=== PATIENT | male | born 1945 | race Caucasian/White ===

== ENCOUNTER 2017-04-08 09:09 | Emergency (ER) | payer MEDICARE ==
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
[2017-04-08] MEDS ORDERED: Diph,Pert(Acell),Tet Vac 0.5 ML SYR IM ONE (09:54)
[2017-04-08] MEDS ORDERED: SILVER SULFADIAZINE 25 GM CREAM TOP ONE (10:02)
[2017-04-08 10:35] LABS: BASO % 0.2 % (0-6); EOS % 3.4 % (0-6); GRAN % 74.4 % (47-80); HEMATOCRIT 42.6 % (42.0-52.0); HEMOGLOBIN 14.4 gm/dl (14.0-18.0); LYMPH % 11.5 % (16-45); MEAN CELL VOLUME 97.3 fl (81-97); MEAN CORPUSCULAR HGB CONC 33.8 g/dl (32-36); MEAN PLATELET VOLUME 8.1 fl (7.4-10.4); MONO % 10.5 % (0-9); PLATELET COUNT 238 K/uL (130-400); RED BLOOD COUNT 4.38 M/uL (4.40-5.70); RED CELL DISTRIBUTION WIDTH 12.4 % (11.5-14.5); WHITE BLOOD COUNT W/O DIFF 8.2 K/uL (4.2-12.2)
[2017-04-08 10:36] LABS: MEAN CORPUSCULAR HEMOGLOBIN 32.8 pg (27-33)
[2017-04-08 10:46] LABS: ANION GAP 4.7 (7-16); BLOOD UREA NITROGEN 12 mg/dL (9-20); CARBON DIOXIDE 28.3 mmol/L (22-30); CREATININE 0.9 mg/dL (0.66-1.25); EST GLOMERULAR FILTRATION RATE > 60 ml/min; GLUCOSE,RANDOM 96 mg/dL (70-110)
== END 2017-04-08 11:10 | disposition short-term general hospital (02) ==
LOC: ER 09:09
DX: T24.311A Burn of third degree of right thigh, initial encounter (principal); T23.212A Burn of second degree of left thumb (nail), initial encounter; I10 Essential (primary) hypertension; Z87.891 Personal history of nicotine dependence; T31.0 Burns involving less than 10% of body surface; X17.XXXA Contact with hot engines, machinery and tools, initial encounter; Y92.008 Other place in unspecified non-institutional (private) residence as the place of occurrence of the external cause
CPT/HCPCS: 80048; 85025; 90715; 96372; 99285